=== PATIENT | female | born 1990 | race Caucasian/White ===

== ENCOUNTER 2016-06-02 22:31 | Emergency (ER) | payer SELFPAY ==
[~2016-06-02] VITALS: Ht 162.6 cm; Wt 75.0 kg
[2016-06-02 22:32] VITALS: BP 109/70; PULSE 98; RESP 14; TEMP 98.3; O2SAT 100
--- NOTE | 2016-06-02 23:19 | PD ---
HPI Chief Complaint: Oral / Dental Pain or Problem Time Seen by Provider: 23:16 Travel History International Travel<30 days: No Contact w/Intl Traveler<30days: No Traveled to known affect area: No History of Present Illness HPI 25-year-old white female presents to emergency Department with complaints of worsening chronic dental pain. She states that she had a tooth extracted last month at the clinic in [place]. She states that she has been back several times to have part of the remaining tooth removed. She states that the pain has once again recurred. She states that she is still having recurrent pain. No fever chills. No drainage. She points to her left upper maxilla as a source of her pain. History Past Medical Histgory Narrative Medical Denies diabetes and hypertension Tetanus Vaccination: < 5 Years ?: Not LMP: TUBAL Past Surgical History Narrative Surgical Dental extraction Allergies-Medications (Allergen,Severity, Reaction): Coded Allergies: No Known Allergies (Unverified , 06/02/16) Review of Systems Except as stated in HPI: all other systems reviewed are Neg Physical Exam Narrative GENERAL: Well-developed, well-nourished in no acute distress. Nontoxic appearing. HEAD: Normocephalic, atraumatic. EYES: Pupils equal round and reactive. Extraocular motions intact. No scleral icterus. No injection or drainage. ENT: TMs clear without erythema. The external auditory canals clear. Nose: clear . Posterior pharynx is pink and moist. No tonsillar edema or exudate. Uvula midline. Airway patent. NECK: Trachea midline.Supple, nontender, moves head freely. No central bony tenderness or spasm. CARDIOVASCULAR: Regular rate and rhythm without murmurs, gallops, or rubs. RESPIRATORY: Clear to auscultation. Breath sounds equal bilaterally. No wheezes , rales, or rhonchi. GASTROINTESTINAL: Abdomen soft, non-tender, nondistended. No hepato-splenomegaly , or palpable masses. No guarding. EXTREMITIES: No clubbing, cyanosis, or edema. No joint tenderness, effusion, or edema noted. BACK: Nontender without deformity or crepitance. No flank tenderness. Patient has evidence of extraction of tooth #15. She states that she has tenderness in tooth #14. There is evidence of prior filling. There is no gingival erythema or edema. Data Data Last Documented VS Vital Signs Date Time Temp Pulse Resp B/P Pulse Ox O2 Delivery O2 Flow Rate FiO2 06/02/16 22:32 98.3 98 14 109/70 100 Room Air MDM Medical Screen Exam Complete: Yes Emergency Medical Condition: No Differential Diagnosis MDM: Moderate Differential diagnoses: Dental abscess, dental caries, osteitis, cellulitis Narrative Course A medical screening exam was performed: At the time of evaluation the presenting medical condition was determined not to be of an emergent nature. The patient was given the option of receiving additional care, but declined. Patient was given options for additional community resources from which to obtain care. The Patient Has Been advised to seek medical attention for their presenting complaint. The patient has been advised to return to the ER at any time if an emergent condition develops. Primary Impression: Encounter for medical screening examination Disposition: 07 EDGO-ED USE ONLY Condition: Stable [place] Jun 02, 2016 23:19
== END 2016-06-02 23:13 | disposition left against medical advice (07) ==
LOC: NEPK 22:31
DX: K08.89 Other specified disorders of teeth and supporting structures (principal)
CPT/HCPCS: 99281